=== PATIENT | male | born 1970 | race Caucasian/White ===

== ENCOUNTER 2019-08-16 12:45 | Emergency (ER) | payer MEDICARE, OTHER, SELFPAY ==
[2019-08-16 12:52] VITALS: BP 129/71; PULSE 73; RESP 14; TEMP 38.1; O2SAT 96
--- NOTE | 2019-08-16 12:58 | ED.URI ---
HPI - URI/Sore Throat General Chief Complaint: Upper Respiratory Infection Stated Complaint: fever chills and aches Time Seen by Provider: 08/16/19 12:58 Source: patient and RN notes reviewed History of Present Illness HPI Narrative: Patient is a 49-year-old male that presents the urgent care with complaints of body aches, chills, fever, fatigue. Patient states that started approximately 2 to 3 days ago with a mild nonproductive cough. Patient also reports of a headache. Patient states he has been using cold and flu medication and Excedrin [id number] without much relief. No other acute complaints. Patient does look fatigued but otherwise no acute distress noted. Patient read the plan of care. Related Data Home Medications Medication Instructions Recorded Confirmed atenolol 25 mg PO DAILY 06/21/19 08/16/19 divalproex 1,000 mg PO QPM 06/21/19 08/16/19 escitalopram oxalate 20 mg PO DAILY 06/21/19 08/16/19 lorazepam 1 mg PO HS 06/21/19 08/16/19 ropinirole 0.5 mg PO BID 06/21/19 08/16/19 rosuvastatin 20 mg PO DAILY 06/21/19 08/16/19 Allergies Allergy/AdvReac Type Severity Reaction Status Date / Time No Known Allergies Allergy Verified 08/16/19 13:02 Review of Systems Review of Systems: Narrative: CONSTITUTIONAL: Reports a fever and chills EYES: Denies visual changes, redness, or discharge. ENT: Denies rhinorrhea, congestion, sore throat, or otalgia. CARDIOVASCULAR: Denies chest pain, palpitations, or edema. RESPIRATORY: Denies cough or dyspnea. GASTROINTESTINAL: Denies abdominal pain, nausea, vomiting, or diarrhea. GENITOURINARY: Denies dysuria or hematuria. SKIN: Denies rash or itching. MUSCULOSKELETAL: Denies back pain, joint pain; reports of body aches NEUROLOGIC: Denies headache, numbness, or weakness. All other systems reviewed are negative, except as documented in HPI. [facility] Past Medical History Medical History (Updated 08/16/19 @ 13:10 by NETTE Jose) Bipolar 1 disorder Hyperlipidemia Hypertension RLS (restless legs syndrome) Surgical History Surgical History (Updated 06/22/19 @ 10:50 by Aminta Mccormick NP) H/O sinus surgery Social History Social History (Updated 06/22/19 @ 10:43 by Aminta Mccormick NP) Smoking packs per day: 1 Smoking cigarettes per day: 20.0 Years smoked: 25 Smoking pack-years: 25.00 Smoking status: Former smoker Tobacco type: cigarettes Smoking end date: 06/09/19 Gender identity (if verbalized by the patient): Male Comments At the time of my signature, I reviewed and agree with the nursing past medical, surgical, social, and family history. There is no relevant family history pertinent to the patient complaint. Exam Narrative: Exam Narrative: GENERAL: This is a well-nourished, well-developed patient, appears fatigued HEAD: normocephalic, atraumatic. EYES: PERRL. Sclera clear/white. Vision is grossly intact. EARS: External ears normal, auditory canals clear and without drainage, TMs normal without perforation. Hearing grossly intact. NOSE: External nose normal with no obvious nasal discharge, bilateral erythemic nares with clear rhinorrhea. THROAT: Mucous membranes moist, posterior pharynx clear. Moderate postnasal drainage NECK: Neck supple, non-tender without lymphadenopathy CARDIOVASCULAR: Regular rate and rhythm without murmurs, gallops, or rubs. RESPIRATORY: Clear to auscultation. Breath sounds equal bilaterally. No wheezes, rales, or rhonchi. SKIN: warm, intact with no suspicious lesions or rash, good texture and turgor. NEURO: awake, alert, and oriented to person, place and time. There were no obvious focal neurologic abnormalities. EXTREMITIES: No clubbing, cyanosis, or edema. Course Vital Signs Vital signs: Vital Signs Temperature 100.6 F H 08/16/19 12:52 Pulse Rate 73 08/16/19 12:52 Respiratory Rate 14 08/16/19 12:52 Blood Pressure 129/71 08/16/19 12:52 Pulse Oximetry 96 08/16/19 12:52 Temperature
== END 2019-08-16 13:25 | disposition home or self-care (01) ==
PROVIDERS: Emergency Provider Nurse Practitioner Family; PCP Family Medicine
DX: J11.1 Influenza due to unidentified influenza virus with other respiratory manifestations (principal); Z87.891 Personal history of nicotine dependence; E78.5 Hyperlipidemia, unspecified; I10 Essential (primary) hypertension
CPT/HCPCS: 87804; 99213; G0463